=== PATIENT | female | born 1945 | race Caucasian/White ===

== ENCOUNTER 2016-11-11 19:11 | Emergency (ER) | payer MEDICARE ==
[2016-11-11] MEDS ORDERED: GENTAMICIN SULFATE 0.3% OPTH 5 ML BTL OPTH ONE (20:29)
--- NOTE | 2016-11-11 21:03 | Emergency Department Record ---
History of Present Illness - General Chief complaint: Eye Problem Stated complaint: LEFT EYE PROBLEM Time Seen by Provider: 11/11/16 19:49 Source: Patient Mode of Arrival: Ambulatory Limitations: No limitations - History of Present Illness Initial comments: pt has had blurred vision w a red eye for a week. about half way thru the week the eye started feeling irritated and like something was in it. chief complaint: Eye redness, Vision change Onset/Timin -: Week(s) Location: Left eye Place: Home If Injury: None Eye Symptoms: Blurry vision, Decreased vision, Foreign body sensation, Redness Severity: Moderate Associated Symptoms: None Treatments Prior to Arrival: None - Related Data Visual acuity (L) = 20/: 200 Visual acuity (R) = 20/: 50 With correction: No Previous Rx's Medication Instructions Recorded Hydrocodone/Acetaminophen [Meraux 1 tab PO Q8H PRN #10 tab 08/02/16 5mg/325mg] Allergies Allergy/AdvReac Type Severity Reaction Status Date / Time No Known Drug Allergies Allergy Verified 08/02/16 14:33 Travel Screening - Travel/Exposure Within Last 30 Days Have you traveled within the last 30 days?: No Review of Systems Reviewed: No additional complaints except as noted below Constitutional: Reports: As per HPI. Denies: Chills, Fever, Malaise, Night sweats, Weakness, Weight change Eyes: Reports: As per HPI. Denies: Eye discharge, Eye pain, Photophobia, Vision change ENT: Reports: As per HPI. Denies: Congestion, Dental pain, Ear pain, Epistaxis , Hearing loss, Throat pain Respiratory: Reports: As per HPI. Denies: Cough, Dyspnea, Hemoptysis, Stridor, Wheezes Cardiovascular: Reports: As per HPI. Denies: Arrhythmia, Chest pain, Dyspnea on exertion, Edema, Murmurs, Orthopnea, Palpitations, Paroxysmal nocturnal dyspnea, Rheumatic Fever, Syncope Endocrine: Reports: As per HPI. Denies: Fatigue, Heat or cold intolerance, Polydipsia, Polyuria Gastrointestinal: Reports: As per HPI. Denies: Abdominal pain, Constipation, Diarrhea, Hematemesis, Hematochezia, Melena, Nausea, Vomiting Genitourinary: Reports: As per HPI. Denies: Abnormal menses, Discharge, Dyspareunia, Dysuria, Frequency, Hematuria, Incontinence, Retention, Urgency Musculoskeletal: Reports: As per HPI. Denies: Arthralgia, Back pain, Gout, Joint swelling, Myalgia, Neck pain Skin: Reports: As per HPI. Denies: Bruising, Change in color, Change in hair/ nails, Lesions, Pruritus, Rash Neurological: Reports: As per HPI. Denies: Abnormal gait, Confusion, Headache, Numbness, Paresthesias, Seizure, Tingling, Tremors, Vertigo, Weakness Psychiatric: Reports: As per HPI. Denies: Anxiety, Auditory hallucinations, Depression, Homicidal thoughts, Suicidal thoughts, Visual hallucinations Hematological/Lymphatic: Reports: As per HPI. Denies: Anemia, Blood Clots, Easy bleeding, Easy bruising, Swollen glands Past Medical History - SOCIAL HISTORY Smoking Status: Current every day smoker Alcohol Use: None Drug Use: None - RESPIRATORY Hx Respiratory Disorders: No - CARDIOVASCULAR Hx Cardio Disorders: Yes Hx Hypertension: Yes - NEURO Hx Neuro Disorders: No - GI Hx GI Disorders: Yes Hx Ulcer: Yes Comment:: High potassium - Hx Genitourinary Disorders: No - ENDOCRINE Hx Endocrine Disorders: Yes Hx Diabetes: Yes - MUSCULOSKELETAL Hx Musculoskeletal Disorders: Yes Hx Arthritis: Yes - PSYCH Hx Psych Problems: No - HEMATOLOGY/ONCOLOGY Hx Hematology/Oncology Disorders: No Family Medical History Any Significant Family History?: Yes Hx Diabetes: Mother Hx HTN: Mother Physical Exam - General General Appearance: Alert, Oriented x3, Cooperative, Mild distress - Head Head exam: Normal inspection - Eye Eye exam: Normal appearance, PERRL, Conjunctival injection, EOMI, Other (slight flourescein uptake in a circular pattern at 1200) Pupils: Normal accommodation Visual acuity (L) = 20/: 200 Visual acuity (R) = 20/: 50 With correction: No IOP (L) in mmH IOP measured with: Tonopen - ENT ENT exam: Normal exam, Mucous membranes moist, Normal external ear exam, Normal orophraynx Ear exam: Normal external inspection. negative: External canal tenderness Nasal Exam: Normal inspection. negative: Discharge, Sinus tenderness Mouth exam: Normal external inspection, Tongue normal Teeth exam: Normal inspection. negative: Dental caries Throat exam: Normal inspection. negative: Tonsillar erythema, Tonsillar exudate - Neck Neck exam: Normal inspection, Full ROM. negative: Tenderness - Respiratory Respiratory exam: Normal lung sounds bilaterally. negative: Respiratory distress - Cardiovascular Cardiovascular Exam: Regular rate, Normal rhythm, Normal heart sounds - GI/Abdominal GI/Abdominal exam: Soft, Normal bowel sounds. negative: Tenderness - Rectal Rectal exam: Deferred - exam: Deferred - Extremities Extremities exam: Normal inspection, Full ROM, Normal capillary refill. negative: Tenderness - Back Back exam: Reports: Normal inspection, Full ROM. Denies: Muscle spasm, Rash noted, Tenderness - Neurological Neurological exam: Alert, CN II-XII intact, Normal gait, Oriented X3 - Psychiatric Psychiatric exam: Normal affect, Normal mood - Skin Skin exam: Dry, Intact, Normal color, Warm Course Vital Signs 11/11/16 19:20 Temperature 98.9 F Pulse Rate [ 83 Pulse Ox Probe] Respiratory 16 Rate Blood Pressure 136/58 [Left Arm] Pulse Ox 97 - Reevaluation(s) Reevaluation #1: 11/11/16 21:04 d/w dr gomez who will see pt at 8am Disposition Disposition: Discharge Clinical Impression: Visual loss Corneal abrasion Qualifiers: Encounter type: initial encounter Laterality: left Qualified Code(s): S05.02XA - Injury of conjunctiva and corneal abrasion without foreign body, left eye, initial encounter Disposition: Home, Self-Care Condition: (1) Good Instructions: Corneal Abrasion (ED), Blurred Vision (ED) Additional Instructions: follow up with dr gomez without fail at 7:50 am. at [address] [place] [id number] in [place]. gentamicin opthalmic drops 2 drops every 6 hours for 5 days. return sooner if worse Referrals: CHOLO GOMEZ [MEDICAL DOCTOR] - Forms: Patient Portal Access
== END 2016-11-11 21:24 | disposition home or self-care (01) ==
LOC: ER 19:11
DX: S05.02XA Injury of conjunctiva and corneal abrasion without foreign body, left eye, initial encounter (principal); H54.62 Unqualified visual loss, left eye, normal vision right eye; X58.XXXA Exposure to other specified factors, initial encounter; Y92.009 Unspecified place in unspecified non-institutional (private) residence as the place of occurrence of the external cause
CPT/HCPCS: 99283

== ENCOUNTER 2017-02-16 09:53 | Day surgery (SDC) | payer MEDICARE ==
[~2017-02-16 09:53] MED LIST: CEFAZOLIN 2 Gram 2 GM/50 ML BAG IVPB ONE
[2017-02-16] MEDS ORDERED: BUPIVACAINE 0.25% W/EPI MPF 30ML VIAL IVP ONE (14:31)
[2017-02-16] MEDS ORDERED: FENTANYL PF 100MCG/2ML VIAL IV ONE (16:23)
[2017-02-16] MEDS ORDERED: MIDAZOLAM HCL 2MG/2ML VIAL IV ONE (16:23)
[2017-02-16] MEDS ORDERED: LIDOCAINE 2% MDV (20MG/ML) 20ML VIAL IV ONE (16:23)
[2017-02-16] MEDS ORDERED: PROPOFOL 10 MG/ML VIAL IV ONE (16:23)
--- NOTE | 2017-02-23 17:06 | Operative Note ---
DATE OF SERVICE: 02/16/2017. DATE OF SURGERY: 02/16/2017. SURGEON: Austin Washington DO. REFERRING PHYSICIAN: Hillary Magana PA-C. PREOPERATIVE DIAGNOSIS: Left labial abscess. POSTOPERATIVE DIAGNOSIS: Left labial abscess. OPERATION: INCISION AND DRAINAGE OF LEFT LABIAL ABSCESS. Indication: Patient is a 70-year-old female who presented to the clinic with about a month to 6 week history of enlarging left labial growth. On exam, it appears that she had an abscess here. There was no cellulitis, but it was fluctuant. Therefore, we did discuss I&D, risks, benefits, and alternatives. Risks include bleeding, infection, recurrence. She understood this fully. Therefore, consent was signed. Questions answered. PROCEDURE: She was taken to the operating room and was placed in supine position. General anesthesia was administered per Department of Anesthesia. Patient rotated into lithotomy position. The mass was prepped and draped in usual sterile fashion. The fluctuant region was anesthetized with a total of 5 mL of 0.25% Sensorcaine with epinephrine. A 2 cm cruciate incision was made. This did drain copious amounts of purulent fluid. This did have the appearance of probable superinfected sebaceous cyst. The mass size itself was about 10 x 8 cm. The wound was then irrigated, packed with iodoform gauze. She was taken to the recovery room in satisfactory condition. Incidentally, we did take cultures, as well. CC: Hillary Magana PA-C [facility]ITAL[facility]uf[facility]
== END 2017-02-16 13:30 | disposition home or self-care (01) ==
LOC: SUR 09:53
PROVIDERS: ATTEND Surgery
DX: N76.4 Abscess of vulva (principal); E11.9 Type 2 diabetes mellitus without complications; Z79.84 Long term (current) use of oral hypoglycemic drugs; E78.00 Pure hypercholesterolemia, unspecified; I10 Essential (primary) hypertension
CPT/HCPCS: 56405; 00940; J3010; J0690

== ENCOUNTER 2017-04-23 08:43 | Emergency (ER) | payer MEDICARE ==
--- NOTE | 2017-04-23 09:07 | Emergency Department Record ---
History of Present Illness - General Chief complaint: Head Injury Stated complaint: FALL HIT HEAD Time Seen by Provider: 04/23/17 08:44 Source: Patient, EMS Mode of Arrival: EMS Limitations: No limitations - History of Present Illness Initial comments: pt fell as she was getting out of bed and hit her head. no loc. the back of her head and her neck hurt. no numbness MD Complaint: Head injury, Fall Onset/Timin -: Hour(s) Arrival Conditions: C-spine immobilization present Mechanism of Injury: Other Location: Occipital Loss of Consciousness: No Previous Trauma to this Area: No Place: Home Radiation: None Severity scale (1-10): 9 Quality: Burning Consistency: Constant Provoking factors: None known Other Injuries: None Associated Symptoms: Denies other symptoms - Related Data Allergies/Adverse reactions: Allergies Allergy/AdvReac Type Severity Reaction Status Date / Time No Known Drug Allergies Allergy Verified 08/02/16 14:33 Travel Screening - Travel/Exposure Within Last 30 Days Have you traveled within the last 30 days?: No Review of Systems Reviewed: No additional complaints except as noted below Constitutional: Reports: As per HPI. Denies: Chills, Fever, Malaise, Night sweats, Weakness, Weight change Eyes: Reports: As per HPI. Denies: Eye discharge, Eye pain, Photophobia, Vision change ENT: Reports: As per HPI. Denies: Congestion, Dental pain, Ear pain, Epistaxis , Hearing loss, Throat pain Respiratory: Reports: As per HPI. Denies: Cough, Dyspnea, Hemoptysis, Stridor, Wheezes Cardiovascular: Reports: As per HPI. Denies: Arrhythmia, Chest pain, Dyspnea on exertion, Edema, Murmurs, Orthopnea, Palpitations, Paroxysmal nocturnal dyspnea, Rheumatic Fever, Syncope Endocrine: Reports: As per HPI. Denies: Fatigue, Heat or cold intolerance, Polydipsia, Polyuria Gastrointestinal: Reports: As per HPI. Denies: Abdominal pain, Constipation, Diarrhea, Hematemesis, Hematochezia, Melena, Nausea, Vomiting Genitourinary: Reports: As per HPI. Denies: Abnormal menses, Discharge, Dyspareunia, Dysuria, Frequency, Hematuria, Incontinence, Retention, Urgency Musculoskeletal: Reports: As per HPI. Denies: Arthralgia, Back pain, Gout, Joint swelling, Myalgia, Neck pain Skin: Reports: As per HPI. Denies: Bruising, Change in color, Change in hair/ nails, Lesions, Pruritus, Rash Neurological: Reports: As per HPI. Denies: Abnormal gait, Confusion, Headache, Numbness, Paresthesias, Seizure, Tingling, Tremors, Vertigo, Weakness Psychiatric: Reports: As per HPI. Denies: Anxiety, Auditory hallucinations, Depression, Homicidal thoughts, Suicidal thoughts, Visual hallucinations Hematological/Lymphatic: Reports: As per HPI. Denies: Anemia, Blood Clots, Easy bleeding, Easy bruising, Swollen glands Past Medical History - SOCIAL HISTORY Smoking Status: Current every day smoker Alcohol Use: None Drug Use: None - RESPIRATORY Hx Respiratory Disorders: No - CARDIOVASCULAR Hx Cardio Disorders: Yes Hx Hypertension: Yes (CONTROLLED WITH MEDS) - NEURO Hx Neuro Disorders: No Hx Neuropathy: Yes (R/T D.M. FEET) - GI Hx GI Disorders: Yes Hx Ulcer: Yes (REQUIRED SURGICAL INTERVENTION) Comment:: High potassium - Hx Genitourinary Disorders: No - ENDOCRINE Hx Endocrine Disorders: Yes Hx Diabetes: Yes Comment:: DOES NOT CHECK ROUTINELY - MUSCULOSKELETAL Hx Musculoskeletal Disorders: Yes Hx Arthritis: Yes Comment:: LEGS HURT ALL THE TIME - PSYCH Hx Psych Problems: Yes Hx Depression: Yes (MED HELPS ALOT) - HEMATOLOGY/ONCOLOGY Hx Hematology/Oncology Disorders: Yes Hx Anemia: Yes Hx Bruising: Yes Hx Blood Transfusions: Yes (DURING ULCER SX) Family Medical History Any Significant Family History?: Yes Hx Diabetes: Mother Hx HTN: Mother Physical Exam - General General Appearance: Alert, Oriented x3, Cooperative, Mild distress - Head Head exam: Normal inspection Head exam detail: Hematoma - Eye Eye exam: Normal appearance, PERRL, EOMI Pupils: Normal accommodation - ENT ENT exam: Normal exam, Mucous membranes moist, Normal external ear exam, Normal orophraynx Ear exam: Normal external inspection. negative: External canal tenderness Nasal Exam: Normal inspection. negative: Discharge, Sinus tenderness Mouth exam: Normal external inspection, Tongue normal Teeth exam: Normal inspection. negative: Dental caries Throat exam: Normal inspection. negative: Tonsillar erythema, Tonsillar exudate - Neck Neck exam: Tenderness. negative: Normal inspection, Full ROM - Respiratory Respiratory exam: Normal lung sounds bilaterally. negative: Respiratory distress - Cardiovascular Cardiovascular Exam: Regular rate, Normal rhythm, Normal heart sounds - GI/Abdominal GI/Abdominal exam: Soft, Normal bowel sounds. negative: Tenderness - Rectal Rectal exam: Deferred - exam: Deferred - Extremities Extremities exam: Normal inspection, Full ROM, Normal capillary refill. negative: Tenderness - Back Back exam: Reports: Normal inspection, Full ROM. Denies: Muscle spasm, Rash noted, Tenderness - Neurological Neurological exam: Alert, CN II-XII intact, Normal gait, Oriented X3 - Psychiatric Psychiatric exam: Normal affect, Normal mood - Skin Skin exam: Dry, Intact, Normal color, Warm Course Vital Signs 04/23/17 08:44 Temperature 97.7 F Pulse Rate 58 L Respiratory 20 Rate Blood Pressure 148/49 Pulse Ox 96 Disposition Disposition: Discharge Clinical Impression: Head injury Qualifiers: Encounter type: initial encounter Qualified Code(s): S09.90XA - Unspecified injury of head, initial encounter Disposition: Home, Self-Care Condition: (1) Good Instructions: Head Injury (ED) Additional Instructions: ice to head. tylenol as needed. follow up with family doctor. return sooner if worse Forms: Patient Portal Access Quality - Quality Measures Quality Measures: N/A - Blood Pressure Screening Does Patient Have Any of the Following: No Blood Pressure Classification: Hypertensive Reading Systolic Measurement: 148 Diastolic Measurement: 49 Screening for High Blood Pressure: < First Hypertensive BP, F/U Documented > [ [id number]] First Hypertensive Follow-up Interventions: Follow-up with rescreen GT 1 day and LT 4 weeks.
--- NOTE | 2017-04-24 07:26 | CT SCAN REPORT ---
EXAM: CT SCAN OF THE HEAD HISTORY: PATIENT HAS A HISTORY OF FALL. TECHNIQUE: Serial axial CT scan of the head was performed at 2.5 mm intervals from the base of the skull to the apex without the use of intravenous contrast. Comparison: CT scan of the head dated 04/06/12 is provided. FINDINGS: Moderate generalized parenchymal volume loss is noted. There is no mass or mass effect. Moderate subcortical white matter foci of decreased attenuation suggests chronic small vessel ischemic changes. There is no CT evidence of intra or extraaxial fluid collection to suggest bleeding. Bone windows demonstrate no CT evidence of a fracture or dislocation of the skull. Soft tissue swelling within the occipital scalp is consistent with a hematoma. IMPRESSION: 1. CHRONIC SMALL VESSEL ISCHEMIC CHANGES ARE IDENTIFIED WITHOUT CT EVIDENCE OF AN ACUTE INTRACRANIAL PROCESS. 2. A SMALL HEMATOMA IS NOTED WITHIN THE RIGHT OCCIPITAL SCALP. JOB NUMBER: [id number] [facility]TDD
--- NOTE | 2017-04-24 07:37 | CT SCAN REPORT ---
EXAM: CT SCAN OF THE CERVICAL SPINE HISTORY: FELL AND HIT HEAD. TECHNIQUE: Serial axial CT scan of the cervical spine was performed at 2.5 mm intervals from the base of the skull to the thoracic inlet without the use of intravenous contrast. Sagittal and coronal reconstructions are provided. No comparison CT's are available. FINDINGS: The vertebral body height, contour, and AP alignment of the cervical spine is within normal limits. 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 There are small foci of ossification of the nuchal ligament. There is no CT evidence of a fracture or dislocation of the cervical spine. Prevertebral soft tissue, parapharyngeal fat are unremarkable. The bilateral parotid, submandibular, and thyroid glands are unremarkable. There is no CT evidence of cervical lymphadenopathy. Soft tissue subcutaneous hematoma is noted within the right occipital scalp. There is at least moderate narrowing of the spinal canal due to the patient's robust ossification of the posterior longitudinal ligament. The airways are patent. The lung windows of the lung apices are clear. IMPRESSION: 1. 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 2. OSSIFICATION OF THE POSTERIOR LONGITUDINAL LIGAMENT IS NOTED DESCRIBED. THIS CREATES AT LEAST MODERATE SPINAL CANAL STENOSIS. 3. HEMATOMA WITHIN THE RIGHT OCCIPITAL SCALP IS NOTED. J[facility]: [id number] [facility]
== END 2017-04-23 10:20 | disposition home or self-care (01) ==
LOC: ER 08:43
DX: S09.90XA Unspecified injury of head, initial encounter (principal); M54.2 Cervicalgia; W06.XXXA Fall from bed, initial encounter; Y92.009 Unspecified place in unspecified non-institutional (private) residence as the place of occurrence of the external cause
CPT/HCPCS: 70450; 72125; 99283

== ENCOUNTER 2017-04-30 06:51 | Day surgery (SDC) | payer MEDICARE ==
[2017-04-30] MEDS ORDERED: LIDOCAINE 2% MDV (20MG/ML) 20ML VIAL IV ONE ×2 (10:01→13:37)
[2017-04-30] MEDS ORDERED: EPINEPHRINE 1 MG/ML AMPUL SQ ONE (10:01)
[2017-04-30] MEDS ORDERED: LIDOCAINE 1% MPF 100MG/10ML STERILE-PAK AMPULE IV ONE (10:01)
[2017-04-30] MEDS ORDERED: TETRACAINE HCL 0.5% 15 ML OPTH BTL OPTH ONE (10:01)
[2017-04-30] MEDS ORDERED: TRYPAN BLUE 0.5 ML DISP.SYRIN IO ONE (10:01)
[2017-04-30] MEDS ORDERED: TETRACAINE HCL 0.5% OPTH 2ML SOLU OPTH ONE (10:01)
[2017-04-30] MEDS ORDERED: NEOMYCIN/POLY./DEXAM OPTH OINT OPTH ONE (10:01)
[2017-04-30] MEDS ORDERED: PROPOFOL 10 MG/ML VIAL IV ONE (13:37)
[2017-04-30] MEDS ORDERED: CIPROFLOXACIN HCL 0.0015 GM, PHENYLEPHRINE HCL 0.05 GM, KETOROLAC TROMETHAMINE 0.000625 GM MC ONE ×5 (16:00)
--- NOTE | 2017-04-30 20:11 | Operative Note ---
DATE OF PROCEDURE: 04/30/17. PREOPERATIVE DIAGNOSIS: Mature cataract, right eye. POSTOPERATIVE DIAGNOSIS: Mature cataract, right eye. OPERATION: Phacoemulsification of cataractous lens with implantation of intraocular lens. LENS IMPLANT USED: Not Given. COMPLICATIONS: None. PROCEDURE IN DETAIL: Following a retrobulbar and facial block, the patient was prepped and draped in the usual fashion for eye surgery. A lid speculum was placed in the right eye after which a 2.4 mm tunnel wound was placed at the temporal limbus and dissected into clear cornea. A paracentesis was placed at 2 o'clock hours to the left and right of the initial incision and the chamber deepened with Viscoelastic. The keratome was then used to enter the anterior chamber after which the continuous circular capsulorrhexis was accomplished without difficulty using a bent needle and a Utrata forceps. Hydrodissection and hydrodelineation of the lens was performed after which the nucleus of the lens was removed using the Phaco handpiece in the [id number] technique. The residual cortical material was irrigated and aspirated from the eye after which the bag and chamber were re-examined. The bag was re-inflated with Viscoelastic and the intraocular lens injected into the capsular bag where it centered well. The Viscoelastic was then copiously irrigated and aspirated from the eye after which the temporal tunnel wound and paracentesis were hydrated and the wounds were examined. They were noted to be watertight. The lid speculum was removed from the eye and the eye patched and shielded. The patient was transferred to the recovery room in satisfactory condition and given an appointment to be reexamined in the clinic later today or as directed by Dr. Gomez. ADDENDUM: Prior to the creation of the capsulorhexis, it was noted that there was extremely poor red reflex and capsulotomy could not be performed due to this. The anterior chamber was inflated with air and VisionBlue dye was placed under the capsular surface. The anterior chamber was then immediately reinflated with Viscoelastic and the capsulorhexis performed. JOB NUMBER: [id number] [facility]
== END 2017-04-30 09:40 | disposition home or self-care (01) ==
LOC: SUR 06:51
PROVIDERS: ATTEND Ophthalmology
DX: H25.12 Age-related nuclear cataract, left eye (principal); E11.9 Type 2 diabetes mellitus without complications; Z79.84 Long term (current) use of oral hypoglycemic drugs; I10 Essential (primary) hypertension; E78.00 Pure hypercholesterolemia, unspecified
CPT/HCPCS: 84132; J0171; J3490

== ENCOUNTER 2017-05-21 09:17 | Day surgery (SDC) | payer MEDICARE ==
[2017-05-21] MEDS ORDERED: LIDOCAINE 2% MDV (20MG/ML) 20ML VIAL IV ONE ×2 (14:20→16:02)
[2017-05-21] MEDS ORDERED: NEOMYCIN/POLY./DEXAM OPTH OINT OPTH ONE (14:20)
[2017-05-21] MEDS ORDERED: TETRACAINE HCL 0.5% OPTH 2ML SOLU OPTH ONE (14:20)
[2017-05-21] MEDS ORDERED: EPINEPHRINE 1 MG/ML AMPUL SQ ONE (14:20)
[2017-05-21] MEDS ORDERED: TETRACAINE HCL 0.5% 15 ML OPTH BTL OPTH ONE (14:20)
[2017-05-21] MEDS ORDERED: LIDOCAINE 1% MPF 100MG/10ML STERILE-PAK AMPULE IV ONE (14:20)
[2017-05-21] MEDS ORDERED: CIPROFLOXACIN HCL 0.0015 GM, PHENYLEPHRINE HCL 0.05 GM, KETOROLAC TROMETHAMINE 0.000625 GM MC ONE ×5 (14:30)
[2017-05-21] MEDS ORDERED: PROPOFOL 10 MG/ML VIAL IV ONE (16:02)
--- NOTE | 2017-05-22 09:24 | Operative Note ---
DATE OF PROCEDURE: 05/21/17. PREOPERATIVE DIAGNOSIS: Nuclear sclerotic and cortical cataract, right eye. POSTOPERATIVE DIAGNOSIS: Nuclear sclerotic and cortical cataract, right eye. OPERATION: Phacoemulsification of cataractous lens with implantation of intraocular lens. LENS IMPLANT USED: Dennis Model [id number] + 21.0 diopters. COMPLICATIONS: None. PROCEDURE IN DETAIL: Following a retrobulbar and facial block, the patient was prepped and draped in the usual fashion for eye surgery. A lid speculum was placed in the right eye after which a 2.4 mm tunnel wound was placed at the temporal limbus and dissected into clear cornea. A paracentesis was placed at 2 o'clock hours to the left and right of the initial incision and the chamber deepened with Viscoelastic. The keratome was then used to enter the anterior chamber after which the continuous circular capsulorrhexis was accomplished without difficulty using a bent needle and a Utrata forceps. Hydrodissection and hydrodelineation of the lens was performed after which the nucleus of the lens was removed using the Phaco handpiece in the [id number] technique. The residual cortical material was irrigated and aspirated from the eye after which the bag and chamber were re-examined. The bag was re-inflated with Viscoelastic and the intraocular lens injected into the capsular bag where it centered well. The Viscoelastic was then copiously irrigated and aspirated from the eye after which the temporal tunnel wound and paracentesis were hydrated and the wounds were examined. They were noted to be watertight. The lid speculum was removed from the eye and the eye patched and shielded. The patient was transferred to the recovery room in satisfactory condition and given an appointment to be reexamined in the clinic later today or as directed by Dr. Gomez. JOB NUMBER: [id number] [facility]
== END 2017-05-21 11:45 | disposition home or self-care (01) ==
LOC: SUR 09:17
PROVIDERS: ATTEND Ophthalmology
DX: H25.11 Age-related nuclear cataract, right eye (principal); H26.8 Other specified cataract; H25.011 Cortical age-related cataract, right eye; E78.00 Pure hypercholesterolemia, unspecified; E11.9 Type 2 diabetes mellitus without complications; Z79.84 Long term (current) use of oral hypoglycemic drugs; I10 Essential (primary) hypertension
CPT/HCPCS: J0171; J3490

== ENCOUNTER 2018-06-01 20:12 | Emergency (ER) | payer MEDICARE ==
[2018-06-01 20:29] LABS: URINE APPEARANCE CLOUDY; URINE BILIRUBIN NEGATIVE (NEGATIVE); URINE BLOOD SMALL (NEGATIVE); URINE COLOR YELLOW; URINE KETONE NEGATIVE (NEGATIVE); URINE LEUKOCYTE ESTERASE MODERATE (NEGATIVE); URINE NITRITE POSITIVE (NEGATIVE); URINE UROBILINOGEN 0.2 E.U./dL (0.20 - 1.00)
[2018-06-01 20:36] LABS: URINE BACTERIA 4+; URINE EPITHELIAL CELLS 0 - 2 (FEW)
[2018-06-01] MEDS ORDERED: CEPHALEXIN 500 MG CAPSULE PO STA (20:38)
--- NOTE | 2018-06-01 20:40 | Emergency Department Record ---
History of Present Illness - General Chief complaint: Female Urogenital Problem Stated complaint: POSS UTI Time Seen by Provider: 06/01/18 20:33 Source: Patient Mode of Arrival: Wheelchair Limitations: No limitations - History of Present Illness Initial comments: 73 yo female presents to ED for evaluation of burning with urination for the past 1 week. Patient denies fevers, chills, flank pain, nausea, or vomiting symptoms. Patient reports previous UTI many years ago with similar symptoms. MD Complaint: Dysuria Onset/Timin -: Week(s) Radiation: Non-radiating Severity: Moderate Quality: Burning Consistency: Intermittent Improves with: None Worsens with: Urination Patient : No Associated Symptoms: Denies other symptoms - Related Data Previous Rx's Medication Instructions Recorded Cephalexin [Keflex] 500 mg PO TID #20 cap 06/01/18 Allergies Allergy/AdvReac Type Severity Reaction Status Date / Time No Known Drug Allergies Allergy Unverified 05/12/18 09:00 Review of Systems Constitutional: Denies: Chills, Fever, Malaise, Night sweats Eyes: Denies: Eye discharge, Eye pain ENT: Denies: Congestion, Ear pain, Epistaxis Respiratory: Denies: Cough, Dyspnea Cardiovascular: Denies: Chest pain, Dyspnea on exertion Endocrine: Denies: Fatigue, Heat or cold intolerance Gastrointestinal: Denies: Abdominal pain, Nausea, Vomiting Genitourinary: Reports: Dysuria. Denies: Incontinence, Retention Musculoskeletal: Denies: Arthralgia, Back pain Skin: Denies: Bruising, Change in color Neurological: Denies: Abnormal gait, Confusion, Headache, Seizure Psychiatric: Denies: Anxiety Hematological/Lymphatic: Denies: Anemia, Blood Clots Past Medical History - SOCIAL HISTORY Smoking Status: Current every day smoker Drug Use: None - RESPIRATORY Hx Respiratory Disorders: No - CARDIOVASCULAR Hx Cardio Disorders: Yes Hx Hypertension: Yes (CONTROLLED WITH MEDS) - NEURO Hx Neuro Disorders: No Hx Neuropathy: Yes (R/T D.M. FEET) - GI Hx GI Disorders: Yes Hx Ulcer: Yes (REQUIRED SURGICAL INTERVENTION) Comment:: High potassium - Hx Genitourinary Disorders: No - ENDOCRINE Hx Endocrine Disorders: Yes Hx Diabetes: Yes Comment:: DOES NOT CHECK ROUTINELY - MUSCULOSKELETAL Hx Musculoskeletal Disorders: Yes Hx Arthritis: Yes Comment:: LEGS HURT ALL THE TIME - PSYCH Hx Psych Problems: Yes Hx Depression: Yes (MED HELPS ALOT) - HEMATOLOGY/ONCOLOGY Hx Hematology/Oncology Disorders: Yes Hx Anemia: Yes Hx Bruising: Yes Hx Blood Transfusions: Yes (DURING ULCER SX) Family Medical History Hx Diabetes: Mother Hx HTN: Mother Physical Exam - General General Appearance: Alert, Oriented x3, Cooperative, No acute distress Limitations: No limitations - Head Head exam: Atraumatic, Normocephalic, Normal inspection Head exam detail: negative: Abrasion, Contusion, Chowdary's sign, General tenderness, Hematoma, Laceration - Eye Eye exam: Normal appearance. negative: Conjunctival injection, Periorbital swelling, Periorbital tenderness, Scleral icterus - ENT Ear exam: negative: Auricular hematoma, Auricular trauma Nasal Exam: negative: Active bleeding, Discharge, Dried blood, Foreign body Mouth exam: negative: Drooling, Laceration, Muffled voice, Tongue elevation - Neck Neck exam: Normal inspection. negative: Meningismus, Tenderness - Respiratory Respiratory exam: Normal lung sounds bilaterally. negative: Rales, Respiratory distress, Rhonchi, Stridor - Cardiovascular Cardiovascular Exam: Regular rate, Normal rhythm, Normal heart sounds - GI/Abdominal GI/Abdominal exam: Soft. negative: Rebound, Rigid, Tenderness - Rectal Rectal exam: Deferred - exam: Deferred - Extremities Extremities exam: negative: Calf tenderness, Pedal edema, Tenderness - Back Back exam: Denies: CVA tenderness (R), CVA tenderness (L) - Neurological Neurological exam: Alert, Oriented X3 - Psychiatric Psychiatric exam: Normal affect, Normal mood - Skin Skin exam: Normal color. negative: Abrasion Type of lesion: negative: abrasion Course - Reevaluation(s) Reevaluation #1: 06/01/18 20:39 UA reviewed: RBCs: 3-6 WBCs: TNTC Epis: 0-2 Bacteria: 4+ Patient was updated on all results, will initiate treatment with Keflex as directed. Patient denies flank pain, fevers, nausea, vomiting symptoms. Patient appears stable for discharge at this time. Medical Decision Making - Lab Data Lab Results 06/01/18 Range/Units 20:20 Urine Color Yellow Urine Appearance Cloudy Urine pH 6.0 (5.0-8.0) Ur Specific [place] 1.025 (1.002-1.030) Urine Protein 30 mg/dl H (NEGATIVE) Urine Glucose (UA) 100 mg/dl H (NEGATIVE) Urine Ketones Negative (NEGATIVE) Urine Blood Small H (NEGATIVE) Urine Nitrite Positive H (NEGATIVE) Urine Bilirubin Negative (NEGATIVE) Urine Urobilinogen 0.2 (0.20 - 1.00) E.U./dL Ur Leukocyte Esterase Moderate H (NEGATIVE) Urine RBC 3 - 6 (NONE SEEN) Urine WBC Too numerous to cnt (0-2/hpf) Ur Epithelial Cells 0 - 2 (FEW) Urine Bacteria 4+ Disposition Disposition: Discharge Clinical Impression: UTI (urinary tract infection) Qualifiers: Urinary tract infection type: acute cystitis Hematuria presence: without hematuria Qualified Code(s): N30.00 - Acute cystitis without hematuria Disposition: Home, Self-Care Condition: (2) Stable Instructions: Urinary Tract Infection in Women (ED) Additional Instructions: Return to ED if your symptoms worsen or if you have any concerns. Keflex as directed. Follow-up with your family doctor in 3-5 days as directed. Prescriptions: Cephalexin [Keflex] 500 mg PO TID #20 cap Forms: Patient Portal Access Time of Disposition: 20:38 Quality - Quality Measures Quality Measures: N/A - Blood Pressure Screening Does Patient Have Any of the Following: Active Dx of HTN Blood Pressure Classification: Hypertensive Reading Systolic Measurement: 154 Diastolic Measurement: 68 Screening for High Blood Pressure: Patient Exclusion, Hx of HTN [G9744]
== END 2018-06-01 20:51 | disposition home or self-care (01) ==
LOC: ER 20:12
DX: N30.00 Acute cystitis without hematuria (principal); I10 Essential (primary) hypertension; E11.9 Type 2 diabetes mellitus without complications; F17.210 Nicotine dependence, cigarettes, uncomplicated
CPT/HCPCS: 81001; 99282; 99283

== ENCOUNTER 2018-10-28 18:27 | Emergency (ER) | payer MEDICARE ==
--- NOTE | 2018-10-28 18:55 | Emergency Department Record ---
History of Present Illness - General Chief Complaint: Ankle/Foot Injury Stated Complaint: TOE NAIL INJURY Time Seen by Provider: 10/28/18 18:36 Source: Patient Mode of Arrival: Ambulatory Limitations: No limitations - History of Present Illness Initial Comments: pt stubbed her toe a week ago and caused the nail to be uplifted. it has contd to be painful. she has been soaking it in peroxide and epsom salts Complaint: Foot injury Onset/Timin -: Week(s) Injury: Foot: Right Place: Home Severity scale (1-10): 10 Improves With: Nothing Worsens With: Nothing Context: Direct blow Associated Symptoms: Able to partially bear weight - Related Data Previous Rx's Medication Instructions Recorded Cephalexin [Keflex] 500 mg PO TID #20 cap 10/28/18 Hydrocodone/Acetaminophen [[place] 1 each PO Q8HR #7 tablet 10/28/18 5-325 Tablet] Allergies Allergy/AdvReac Type Severity Reaction Status Date / Time No Known Drug Allergies Allergy Verified 10/28/18 18:38 Travel Screening - Travel/Exposure Within Last 30 Days Have you traveled within the last 30 days?: No Review of Systems Reviewed: No additional complaints except as noted below Constitutional: Reports: As per HPI. Denies: Chills, Fever, Malaise, Night sweats, Weakness, Weight change Eyes: Reports: As per HPI. Denies: Eye discharge, Eye pain, Photophobia, Vision change ENT: Reports: As per HPI. Denies: Congestion, Dental pain, Ear pain, Epistaxis , Hearing loss, Throat pain Respiratory: Reports: As per HPI. Denies: Cough, Dyspnea, Hemoptysis, Stridor, Wheezes Cardiovascular: Reports: As per HPI. Denies: Arrhythmia, Chest pain, Dyspnea on exertion, Edema, Murmurs, Orthopnea, Palpitations, Paroxysmal nocturnal dyspnea, Rheumatic Fever, Syncope Endocrine: Reports: As per HPI. Denies: Fatigue, Heat or cold intolerance, Polydipsia, Polyuria Gastrointestinal: Reports: As per HPI. Denies: Abdominal pain, Constipation, Diarrhea, Hematemesis, Hematochezia, Melena, Nausea, Vomiting Genitourinary: Reports: As per HPI. Denies: Abnormal menses, Discharge, Dyspareunia, Dysuria, Frequency, Hematuria, Incontinence, Retention, Urgency Musculoskeletal: Reports: As per HPI. Denies: Arthralgia, Back pain, Gout, Joint swelling, Myalgia, Neck pain Skin: Reports: As per HPI. Denies: Bruising, Change in color, Change in hair/ nails, Lesions, Pruritus, Rash Neurological: Reports: As per HPI. Denies: Abnormal gait, Confusion, Headache, Numbness, Paresthesias, Seizure, Tingling, Tremors, Vertigo, Weakness Psychiatric: Reports: As per HPI. Denies: Anxiety, Auditory hallucinations, Depression, Homicidal thoughts, Suicidal thoughts, Visual hallucinations Hematological/Lymphatic: Reports: As per HPI. Denies: Anemia, Blood Clots, Easy bleeding, Easy bruising, Swollen glands Past Medical History - SOCIAL HISTORY Smoking Status: Current every day smoker Alcohol Use: None Drug Use: None - RESPIRATORY Hx Respiratory Disorders: No - CARDIOVASCULAR Hx Cardio Disorders: Yes Hx Hypertension: Yes (CONTROLLED WITH MEDS) - NEURO Hx Neuro Disorders: Yes Hx Neuropathy: Yes (R/T D.M. FEET) - GI Hx GI Disorders: Yes Hx Ulcer: Yes - Hx Genitourinary Disorders: No - ENDOCRINE Hx Endocrine Disorders: Yes Hx Diabetes: Yes Comment:: DOES NOT CHECK ROUTINELY - MUSCULOSKELETAL Hx Musculoskeletal Disorders: Yes Hx Arthritis: Yes - PSYCH Hx Psych Problems: Yes Hx Depression: Yes - HEMATOLOGY/ONCOLOGY Hx Hematology/Oncology Disorders: Yes Hx Anemia: Yes Hx Bruising: Yes Hx Blood Transfusions: Yes (DURING ULCER SX) Family Medical History Any Significant Family History?: Yes Hx Diabetes: Mother Hx HTN: Mother Physical Exam - General General Appearance: Alert, Oriented x3, Cooperative, Mild distress - Head Head exam: Normal inspection - Eye Eye exam: Normal appearance, PERRL, EOMI Pupils: Normal accommodation - ENT ENT exam: Normal exam, Mucous membranes moist, Normal external ear exam, Normal orophraynx Ear exam: Normal external inspection. negative: External canal tenderness Nasal Exam: Normal inspection. negative: Discharge, Sinus tenderness Mouth exam: Normal external inspection, Tongue normal Teeth exam: Normal inspection. negative: Dental caries Throat exam: Normal inspection. negative: Tonsillar erythema, Tonsillar exudate - Neck Neck exam: Normal inspection, Full ROM. negative: Tenderness - Respiratory Respiratory exam: Normal lung sounds bilaterally. negative: Respiratory distress - Cardiovascular Cardiovascular Exam: Regular rate, Normal rhythm, Normal heart sounds - GI/Abdominal GI/Abdominal exam: Soft, Normal bowel sounds. negative: Tenderness - Rectal Rectal exam: Deferred - exam: Deferred - Extremities Extremities exam: Full ROM, Normal capillary refill, Tenderness (2nd toe, nail loose, slight erythema) Image of Feet: 1 - ecchymosis, nail loose, tender, slight erythema - Back Back exam: Reports: Normal inspection, Full ROM. Denies: Muscle spasm, Rash noted, Tenderness - Neurological Neurological exam: Alert, CN II-XII intact, Normal gait, Oriented X3 - Psychiatric Psychiatric exam: Normal affect, Normal mood - Skin Skin exam: Dry, Intact, Normal color, Warm Course Vital Signs 10/28/18 18:34 Temperature 98.2 F Pulse Rate 80 Respiratory 20 Rate Blood Pressure 169/74 Pulse Ox 96 Disposition Disposition: Discharge Clinical Impression: Toe contusion Qualifiers: Encounter type: initial encounter Toe: lesser toe Damage to nail status: with damage Laterality: right Qualified Code(s): S90.221A - Contusion of right lesser toe(s) with damage to nail, initial encounter Toenail avulsion Qualifiers: Encounter type: initial encounter Qualified Code(s): S91.209A - Unspecified open wound of unspecified toe(s) with damage to nail, initial encounter Disposition: Home, Self-Care Condition: (1) Good Instructions: Nail Avulsion (ED), Foot Contusion (ED) Additional Instructions: follow up with family doctor. return sooner if worse. elevate foot. continue soaks. keep dressing and antibiotic cream on toe Prescriptions: Hydrocodone/Acetaminophen [[place] 5-325 Tablet] 1 each PO Q8HR #7 tablet Cephalexin [Keflex] 500 mg PO TID #20 cap Forms: Patient Portal Access Quality - Quality Measures Quality Measures: N/A - Blood Pressure Screening Does Patient Have Any of the Following: Active Dx of HTN Blood Pressure Classification: Hypertensive Reading Systolic Measurement: 169 Diastolic Measurement: 74 Screening for High Blood Pressure: Patient Exclusion, Hx of HTN [G9744]
[2018-10-28] MEDS ORDERED: HYDROCODONE/APAP 5/325MG TABLET PO ONE (19:49)
[2018-10-28] MEDS ORDERED: CEPHALEXIN 500 MG CAPSULE PO STA (20:06)
--- NOTE | 2018-10-31 11:50 | RADIOLOGY REPORT ---
DATE: 10/28/2018 at 7:02 p.m. EXAM: RIGHT TOES WITH ATTENTION TO THE SECOND TOE. HISTORY: Injury. Stubbed right second toe about a week ago with persistent pain. TECHNIQUE: Three views of the toes. The second through fourth toes are included on all three views with the great toe and the fifth toe excluded on one view. COMPARISON: No prior right foot or right toe series. ENCOUNTER: Initial. FINDINGS: Limited evaluation of the toes on the lateral view as they all, for the most part, overlap. Mild degenerative arthritis involving several of the distal interphalangeal joints in particular. No definite acute fracture or dislocation of the toes identified. IMPRESSION: 1. DEGENERATIVE ARTHRITIS. 2. NO DEFINITE FRACTURE OF THE TOES IDENTIFIED. JOB NUMBER: [id number] MTDD
== END 2018-10-28 20:32 | disposition home or self-care (01) ==
LOC: ER 18:27
DX: S91.204A Unspecified open wound of right lesser toe(s) with damage to nail, initial encounter (principal); S90.221A Contusion of right lesser toe(s) with damage to nail, initial encounter; W22.8XXA Striking against or struck by other objects, initial encounter; Y92.009 Unspecified place in unspecified non-institutional (private) residence as the place of occurrence of the external cause; I10 Essential (primary) hypertension; F17.210 Nicotine dependence, cigarettes, uncomplicated
CPT/HCPCS: 73660; 99283

== ENCOUNTER 2019-03-25 20:49 | Emergency (ER) | payer MEDICARE ==
--- NOTE | 2019-03-25 21:07 | Emergency Department Record ---
History of Present Illness - General Chief complaint: Female Urogenital Problem Stated complaint: UTI Time Seen by Provider: 03/25/19 20:50 Source: Patient Mode of Arrival: Wheelchair Limitations: No limitations - History of Present Illness Initial comments: 73 yo female presents to ED for evaluation of possible UTI. Patient reports burning with urination for 3 weeks, reports mild decreased appetite. Patient denies fevers, chills, flank pain, or abdominal pain symptoms. Patient denies recent illness. MD Complaint: Dysuria Onset/Timin -: Week(s) Radiation: Non-radiating Severity: Moderate Quality: Burning Consistency: Intermittent Worsens with: Urination Patient : No Associated Symptoms: Denies other symptoms - Related Data Previous Rx's Medication Instructions Recorded Cephalexin [Keflex] 500 mg PO TID #20 cap 03/25/19 Allergies Allergy/AdvReac Type Severity Reaction Status Date / Time No Known Drug Allergies Allergy Verified 03/25/19 21:05 Review of Systems Constitutional: Denies: Chills, Fever, Malaise, Night sweats Eyes: Denies: Eye discharge, Eye pain ENT: Denies: Congestion, Ear pain, Epistaxis Respiratory: Denies: Cough, Dyspnea Cardiovascular: Denies: Chest pain, Dyspnea on exertion Endocrine: Denies: Fatigue, Heat or cold intolerance Gastrointestinal: Denies: Abdominal pain, Nausea, Vomiting Genitourinary: Reports: Dysuria. Denies: Incontinence, Retention Musculoskeletal: Denies: Arthralgia, Back pain Skin: Denies: Bruising, Change in color Neurological: Denies: Abnormal gait, Confusion, Headache, Seizure Psychiatric: Denies: Anxiety Hematological/Lymphatic: Denies: Anemia, Blood Clots Past Medical History - SOCIAL HISTORY Smoking Status: Current every day smoker Drug Use: None - RESPIRATORY Hx Respiratory Disorders: No - CARDIOVASCULAR Hx Cardio Disorders: Yes Hx Hypertension: Yes (CONTROLLED WITH MEDS) - NEURO Hx Neuro Disorders: Yes Hx Neuropathy: Yes (R/T D.M. FEET) - GI Hx GI Disorders: Yes Hx Ulcer: Yes - Hx Genitourinary Disorders: No - ENDOCRINE Hx Endocrine Disorders: Yes Hx Diabetes: Yes Comment:: DOES NOT CHECK ROUTINELY - MUSCULOSKELETAL Hx Musculoskeletal Disorders: Yes Hx Arthritis: Yes - PSYCH Hx Psych Problems: Yes Hx Depression: Yes - HEMATOLOGY/ONCOLOGY Hx Hematology/Oncology Disorders: Yes Hx Anemia: Yes Hx Bruising: Yes Hx Blood Transfusions: Yes (DURING ULCER SX) Family Medical History Hx Diabetes: Mother Hx HTN: Mother Physical Exam - General General Appearance: Alert, Oriented x3, Cooperative, No acute distress Limitations: No limitations - Head Head exam: Atraumatic, Normocephalic, Normal inspection Head exam detail: negative: Abrasion, Contusion, Chowdary's sign, General tenderness, Hematoma, Laceration - Eye Eye exam: Normal appearance. negative: Conjunctival injection, Periorbital swelling, Periorbital tenderness, Scleral icterus - ENT Ear exam: negative: Auricular hematoma, Auricular trauma Nasal Exam: negative: Active bleeding, Discharge, Dried blood, Foreign body Mouth exam: negative: Drooling, Laceration, Muffled voice, Tongue elevation - Neck Neck exam: Normal inspection. negative: Meningismus, Tenderness - Respiratory Respiratory exam: Normal lung sounds bilaterally. negative: Rales, Respiratory distress, Rhonchi, Stridor - Cardiovascular Cardiovascular Exam: Regular rate, Normal rhythm, Normal heart sounds - GI/Abdominal GI/Abdominal exam: Soft. negative: Rebound, Rigid, Tenderness - Rectal Rectal exam: Deferred - exam: Deferred - Extremities Extremities exam: Normal inspection. negative: Pedal edema, Tenderness - Back Back exam: Denies: CVA tenderness (R), CVA tenderness (L) - Neurological Neurological exam: Alert, Normal gait, Oriented X3 - Psychiatric Psychiatric exam: Normal affect, Normal mood - Skin Skin exam: Normal color. negative: Abrasion Type of lesion: negative: abrasion Course Vital Signs 03/25/19 21:02 Temperature 98.2 F Pulse Rate [ 85 Left] Respiratory 16 Rate Blood Pressure 128/62 [Left] Pulse Ox 99 - Reevaluation(s) Reevaluation #1: 03/25/19 21:33 UA reviewed: 0-2 RBCs 6-10 WBCs TNTC epithelial cells 1+ Bacteria Patient was updated on UA results, sample appears contaminated however patient is symptomatic. Will treat for symptomatic dysuria with Keflex as directed. No evidence for systemic infection/process present on examination. Patient appears stable for discharge at time. Disposition Disposition: Discharge Clinical Impression: UTI (urinary tract infection) Qualifiers: Urinary tract infection type: acute cystitis Hematuria presence: without hematuria Qualified Code(s): N30.00 - Acute cystitis without hematuria Disposition: Home, Self-Care Condition: (2) Stable Instructions: Urinary Tract Infection in Women (ED) Additional Instructions: Return to ED if your symptoms worsen or if you have any concerns. Keflex as directed. Follow-up with your family doctor in 3-5 days as directed. Prescriptions: Cephalexin [Keflex] 500 mg PO TID #20 cap Forms: Patient Portal Access Time of Disposition: 21:36 Quality - Quality Measures Quality Measures: N/A - Blood Pressure Screening Does Patient Have Any of the Following: No Blood Pressure Classification: Pre-Hypertensive BP Reading Systolic Measurement: 128 Diastolic Measurement: 62 Screening for High Blood Pressure: < Pre-Hypertensive BP, F/U Documented > [G8950] Pre-Hypertensive Follow-up Interventions: Referral to alternative/primary care provider.
[2019-03-25 21:16] LABS: URINE APPEARANCE CLEAR; URINE BILIRUBIN NEGATIVE (NEGATIVE); URINE BLOOD NEGATIVE (NEGATIVE); URINE COLOR YELLOW; URINE KETONE NEGATIVE (NEGATIVE); URINE LEUKOCYTE ESTERASE SMALL (NEGATIVE); URINE NITRITE POSITIVE (NEGATIVE); URINE UROBILINOGEN 0.2 E.U./dL (0.20 - 1.00)
[2019-03-25 21:23] LABS: URINE BACTERIA 1+; URINE EPITHELIAL CELLS TNTC (FEW); URINE RBC 0 - 2 (NONE SEEN)
[2019-03-25] MEDS ORDERED: CEPHALEXIN 500 MG CAPSULE PO STA (21:36)
== END 2019-03-25 21:49 | disposition home or self-care (01) ==
LOC: ER 20:49
DX: N30.00 Acute cystitis without hematuria (principal); I10 Essential (primary) hypertension; E11.9 Type 2 diabetes mellitus without complications; F17.210 Nicotine dependence, cigarettes, uncomplicated
CPT/HCPCS: 81001; 99282; 99283